=== PATIENT | male | born 1960 | race Caucasian/White ===

== ENCOUNTER 2018-10-06 12:57 | Emergency (ER) | payer OTHER ==
[~2018-10-06] VITALS: Ht 190.5 cm; Wt 99.8 kg
[2018-10-06] MEDS ORDERED: IBUPROFEN 800800 M1 PO (14:05)
[2018-10-06 14:51] VITALS: BP 147/96
== END 2018-10-06 14:52 | disposition home or self-care (01) ==
LOC: M.ERS 12:57
DX: S62.633A Displaced fracture of distal phalanx of left middle finger, initial encounter for closed fracture (principal); W20.8XXA Other cause of strike by thrown, projected or falling object, initial encounter; Y93.89 Activity, other specified; Y92.89 Other specified places as the place of occurrence of the external cause; Y99.8 Other external cause status